=== PATIENT | male | born 1925 | race Caucasian/White ===

== ENCOUNTER 2016-04-05 07:04 | Day surgery (SDC) | payer BC ==
[2016-03-28 15:23] VITALS: BMI 23.0
--- NOTE | 2016-03-28 15:53 | PAT Medication Instructions ---
Service Date Mar 28, 2016. Current Home Medication List Alfuzosin Hcl (Uroxatral), 10 MG PO QPM Aspirin (Aspirin Ec), 81 MG PO HS Simvastatin (Zocor), 5 MG PO QPM Timolol Maleate (Ophth) (Timoptic), 1 DROP OPB QPM Medication Instructions For Your Scheduled Surgery - Take the following medications as scheduled the night before surgery: Alfuzosin Hcl (Uroxatral), 10 MG PO QPM Simvastatin (Zocor), 5 MG PO QPM Timolol Maleate (Ophth) (Timoptic), 1 DROP OPB QPM Aspirin (Aspirin Ec), 81 MG PO HS (okay to continue per surgeon) If you have any questions please call us at [phone] (Talia Beltrán PA-C) or [phone] or [phone]
[2016-03-28 16:18] LABS: BASO % 0.6 %; BASO ABS # 0.04 K/uL (0-0.2); COMPLETE YES; HEMATOCRIT 39.7 % (42-52); IG% 0.1 %; LYMPH % 31.9 %; LYMPH ABS # 2.13 K/uL (1.2-3.4); MEAN CORPUSCULAR HEMOGLOBIN 32.1 pg (25-34); MEAN CORPUSCULAR HGB CONC 33.8 g/dl (32-36); MEAN PLATELET VOLUME 9.6 fL (7.4-10.4); MONO % 10.2 %; NEUT % 47.2 %; PLATELET COUNT 137 K/uL (130-400); RED BLOOD COUNT 4.18 M/uL (4.7-6.1); WHITE BLOOD COUNT 6.67 K/uL (4.8-10.8)
[2016-03-28 16:34] LABS: INR 1.1 (0.9-1.1); PROTHROMBIN TIME (PATIENT) 11.4 SECONDS (9.0-12.0)
[2016-03-28 16:48] LABS: BUN/CREATININE RATIO 14.4 (10-20); CALCIUM 8.4 mg/dl (8.5-10.1); CREATININE 0.9 mg/dl (0.60-1.40); POTASSIUM 4.4 mmol/L (3.5-5.1)
[~2016-04-05] VITALS: Ht 170.2 cm; Wt 69.1 kg
[2016-04-05] VITALS (8 sets, daily range): BP systolic 136–162; BP diastolic 74–93; PULSE 51–67; TEMP 36.3–36.8; O2SAT 95–98; Ht 170.2 cm; Wt 69.1 kg
[~2016-04-05 07:04] MED LIST: ALFU10TA30 PO; ASPI81TA28 PO; CEFAZOLIN 2000 MG/60 ML D5W IV SCH; HEPARIN SOD 5000 UNIT/0.5 ML CARP SQ SCH; LACTATED RINGER'S 1000ML 1,000 ML IV SCH; SIMV5TAB2 PO; TIMO0.2528 OPB
[2016-04-05] MEDS ORDERED: FENTANYL CITRATE INJ 50 MCG/1 ML 2 ML VIAL ONE (07:37)
[2016-04-05] MEDS ORDERED: PROPOFOL IV EMULSION 10 MG/ML 20 ML VIAL IV ONE (07:37)
[2016-04-05] MEDS ORDERED: ONDANSETRON INJ 2 MG/ML 2 ML VIAL ONE (07:37)
[2016-04-05] MEDS ORDERED: LIDOCAINE HCL 2% 2 ML VIAL (20MG/ML) ONE (07:37)
[2016-04-05] MEDS ORDERED: DEXAMETHASONE SOD INJ 4 MG/ML VIAL ONE (07:37)
[2016-04-05] MEDS ORDERED: MIDAZOLAM HCL 1 MG/ML 2ML VIAL ONE (07:37)
[2016-04-05] MEDS ORDERED: LACTATED RINGER'S 1000ML 1,000 ML IV PRN (07:53)
[2016-04-05] MEDS ORDERED: FENTANYL CITRATE INJ 50 MCG/1 ML 2 ML VIAL IV PRN (08:00)
[2016-04-05] MEDS ORDERED: ONDANSETRON INJ 2 MG/ML 2 ML VIAL IV PRN ×2 (08:00→10:00)
--- NOTE | 2016-04-05 08:00 | History & Physical Bridge Note ---
H&P Re-Evaluation Bridge Note: I have examined the patient, reviewed the History & Physical and in the interval since the performance of the History & Physical I have noted the following changes of clinical significance: No changes noted
[2016-04-05] MEDS ORDERED: ARTIFICIAL TEARS OP OINT 3.5 GM TUBE ONE (08:32)
[2016-04-05] MEDS ORDERED: EpHEDrine SULFATE 50MG/5ML SYR ONE (08:35)
[2016-04-05] MEDS ORDERED: ROCURONIUM BROMIDE 10 MG/ML 5 ML VIAL ONE (08:49)
[2016-04-05] MEDS ORDERED: NEOSTIGMINE METHYLSULFATE 5 MG/5 ML SYR ONE (08:50)
[2016-04-05] MEDS ORDERED: GLYCOPYRROLATE INJ 0.2 MG/ML VIAL ONE (08:50)
[2016-04-05] MEDS ORDERED: BUPIVACAINE/EPINEPHRINE 0.5% MPF 1:200,000 30 ML VIAL INJ ONE (09:35)
[2016-04-05] MEDS ORDERED: SODIUM CHLORIDE 0.9% 1000ML 1,000 ML IV SCH (09:55)
--- NOTE | 2016-04-05 09:55 | [facility] Operative Report ---
Operative Report Operative Date Apr 05, 2016. 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 Any exceptions are noted below.
[2016-04-05] MEDS ORDERED: HYDR-5688 PO (09:58)
[2016-04-05] MEDS ORDERED: HYDROCODONE/ACETAMOPHEN 5/325MG TAB PO PRN ×2 (10:00)
[2016-04-05] MEDS ORDERED: MoRPHine SULFATE 2 MG/ML CARP IV PRN (10:00)
[2016-04-05] MEDS ORDERED: IBUPROFEN 600 MG TAB PO PRN (10:00)
--- NOTE | 2016-04-05 10:00 | Discharge Instructions ---
Discharge Instructions Admission Reason for Admission: Left Inguinal Hernia Discharge Discharge Diagnosis / Problem: left inguinal hernia Discharge Goals Goal(s): Decrease discomfort, Improve function Activity Recommendations Activity Limitations: as noted below Lifting Limitations: no more than 10 pounds Shower/Bathe: tomorrow . Instructions / Follow-Up Instructions / Follow-Up follow up with Dr. Lagunas in 1-2 weeks. Current Hospital Diet Patient's current hospital diet: Discharge Diet Recommended Diet: Regular Diet Procedures Procedures Performed: Open Left Inguinal Hernia Repair with Mesh Pending Studies Studies pending at discharge: no Medical Emergencies . Who to Call and When: Medical Emergencies: If at any time you feel your situation is an emergency, please call 911 immediately. . Non-Emergent Contact Non-Emergency issues call your: Primary Care Provider, Surgeon Call Non-Emergent contact if: temperature is above 101, your pain is not controlled, wound has increased drainage, wound has increased redness, wound has increased pain . "Provider Documentation" section prepared by Vadim Lagunas. VTE Core Measure Inpt VTE Proph given/why not?: Unfractionated heparin SQ, SCD's
--- NOTE | 2016-04-05 10:20 | OPERATIVE REPORT ---
DATE OF OPERATION: 04/05/2016 PREOPERATIVE DIAGNOSIS: Left inguinal hernia. POSTOPERATIVE DIAGNOSIS: Direct as well as an indirect left inguinal hernia. PROCEDURE: Open left inguinal hernia repair with mesh. SURGEON: Dr. Lagunas. ESTIMATED BLOOD LOSS: 30 mL. COMPLICATIONS: No immediate. ANESTHESIA: General. The patient tolerated the procedure well. OPERATIVE NOTE: After informed consent was obtained, the patient was taken to the operating suite, placed in supine position. After successful intubation a Constantino catheter was placed. The left groin was sterilely prepped and draped in usual fashion. An inguinal incision was made with a 10 blade scalpel and carried down through the soft tissue using electrocautery. We skeletonized the external oblique aponeurosis and then made a small incision in it as well. It was extended distally as well as several centimeters proximally with a Metzenbaum scissor. Once in the inguinal canal, we dissected the cord and cord structures away using primarily blunt dissection. I was able to grab it with a Isac clamp and elevate it off the pubic bone and then place a Narinder drain around it. We immediately noted a very large direct hernia defect. In fact the entire floor of the inguinal canal was essentially blown out. We were able to easily reduce this. Along the cord structures itself was also a very large necrotic thickened indirect hernia sac. We were able to tease this off the cord and cord structures using blunt dissection as well as small amounts of electrocautery. Eventually we got the sac the whole way down to its neck and then we were able to quite easily dunk this back into the abdominal cavity. After we did this, we thoroughly irrigated the inguinal canal. We used a piece of polypropylene mesh with a noland hole as an onlay. We secured it distally into Reynaldo's ligament and medially along the rectus musculature and laterally along the shelving portion of Poupart's ligament. We did all this with interrupted 0 Nurolon. We then wrapped the "arms" of the mesh around behind the cord and cord structures and also secured them to underlying muscle. At the end of procedure, both defects were repaired tension free. There was adequate hemostasis. We irrigated the wound a final time. We did inject around the edges of the mesh with Marcaine for postoperative analgesia. I then closed the external oblique aponeurosis with a running 2-0 Vicryl. Soft tissue was then irrigated and the wound was closed with 3-0 Vicryl followed by 4-0 Monocryl. Some additional Marcaine was injected around the wound for postoperative analgesia and skin glue was used as a dressing. The patient was awakened, extubated, and transferred to recovery in stable condition. I attest to the content of the Intraoperative Record and any orders documented therein. Any exceptio ns are noted below.
[2016-04-05] MEDS ORDERED: LABETALOL HCL IV 5 MG/ML 20ML ONE (10:51)
--- NOTE | 2016-04-05 11:02 | Anesthesiology Progress Note ---
Anesthesia Post Op Note Date & Time Apr 05, 2016 at 11:02 Vital Signs Pain Intensity: 0 Vital Signs Past 12 Hours Date Time Temp Pulse Resp B/P Pulse Ox O2 Delivery O2 Flow Rate FiO2 04/05/16 10:30 36.4 54 16 143/78 95 Room Air 04/05/16 10:25 133/90 04/05/16 10:23 36.4 04/05/16 10:19 55 16 04/05/16 10:19 55 16 97 04/05/16 10:18 58 16 137/86 95 04/05/16 10:18 53 16 04/05/16 10:17 134/80 04/05/16 10:13 58 14 94 04/05/16 10:13 58 14 04/05/16 10:12 58 15 04/05/16 10:12 59 15 94 04/05/16 10:09 112/85 04/05/16 10:07 60 19 100 04/05/16 10:07 60 19 04/05/16 10:06 62 16 04/05/16 10:06 60 16 99 04/05/16 10:05 155/89 04/05/16 10:01 65 12 96 04/05/16 10:01 65 12 04/05/16 09:59 145/99 04/05/16 09:56 73 15 99 04/05/16 09:56 73 15 04/05/16 09:54 133/76 04/05/16 09:51 75 24 04/05/16 09:51 76 24 100 04/05/16 09:50 138/69 04/05/16 09:46 83 14 97 04/05/16 09:46 82 14 04/05/16 09:46 36.2 96 16 162/108 97 Mask 10 04/05/16 07:34 36.3 55 18 162/93 98 Room Air Notes Mental Status: alert / awake / arousable, participated in evaluation Pt Amnestic to Procedure: Yes Nausea / Vomiting: adequately controlled Pain: adequately controlled Airway Patency, RR, SpO2: stable & adequate BP & HR: stable & adequate Hydration State: stable & adequate Anesthetic Complications: no major complications apparent Pt did well.
[2016-04-05] MEDS ORDERED: IBUPROFEN 600 MG TAB ONE (11:10)
[2016-04-05] MEDS ORDERED: NURSING VERBAL MED ORDER ONE (15:15)
[2016-04-05] MEDS ORDERED: TAMSULOSIN HCL 0.4 MG CAP PO ONE (15:30)
[2016-04-05] MEDS ORDERED: CEPH500C PO (20:47)
== END 2016-04-05 15:45 | disposition home or self-care (01) ==
LOC: C.ACU 07:04
PROVIDERS: ATTEND Surgery
DX: K40.90 Unilateral inguinal hernia, without obstruction or gangrene, not specified as recurrent (principal); N40.1 Benign prostatic hyperplasia with lower urinary tract symptoms; N13.8 Other obstructive and reflux uropathy; R35.1 Nocturia; Z79.82 Long term (current) use of aspirin; Z82.49 Family history of ischemic heart disease and other diseases of the circulatory system; R33.9 Retention of urine, unspecified

== ENCOUNTER 2016-04-05 19:47 | Emergency (ER) | payer BC ==
[~2016-04-05] VITALS: Ht 170.2 cm; Wt 72.6 kg
[~2016-04-05 19:47] MED LIST changes: -CEFAZOLIN 2000 MG/60 ML D5W IV SCH; -HEPARIN SOD 5000 UNIT/0.5 ML CARP SQ SCH; +HYDR-5688 PO; -LACTATED RINGER'S 1000ML 1,000 ML IV SCH
[2016-04-05 19:50] VITALS: TEMP 36.3; Ht 170.2 cm; Wt 72.6 kg
[2016-04-05] MEDS ORDERED: CEPHALEXIN MONOHYDRATE 250 MG CAP PO STA (20:31)
--- NOTE | 2016-04-05 20:32 | EMERGENCY ROOM VISIT NOTE ---
History Report prepared by Yu: Yaima Marei Under the Supervision of: Dr. Den Williamson M.D. First contact with patient: 19:55 Chief Complaint: UNABLE TO VOID Stated Complaint: HERNIA PROBLEM, S/P HERNIA SURGERY TODAY History of Present Illness The patient is a 89 year old male who presents to the Emergency Room with complaints of being unable to void for the past few hours. The patient had surgery this morning by Dr. Lagunas to repair a left inguinal hernia. He states that he has not been able to urinate since his surgery. He is experiencing suprapubic abdominal pain and pressure. He rates his pain as a 4/ 10 in severity. 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 A total of 10 systems reviewed and were otherwise negative. Past Medical & Surgical Medical Problems: (1) Cataract (2) Diverticulosis of colon (without mention of hemorrhage) Family History Non-pertinent due to advanced age. Social History Smoking Status: Never Smoker Marital Status: Housing Status: lives with significant other Occupation Status: retired Current/Historical Medications Scheduled Alfuzosin Hcl (Uroxatral), 10 MG PO QPM Aspirin (Aspirin Ec), 81 MG PO HS Cephalexin Monohydrate (Keflex), 1 CAP PO QID Simvastatin (Zocor), 5 MG PO QPM Timolol Maleate (Ophth) (Timoptic), 1 DROP OPB QPM Scheduled PRN Hydrocodone/Acetaminophen 5MG/325MG ([place] 5MG/325MG), 1 TABLET PO Q4 PRN for Pain Allergies Coded Allergies: No Known Allergies (Verified , 04/05/16) Physical Exam Vital Signs Date Time Temp Pulse Resp B/P Pulse Ox O2 Delivery O2 Flow Rate FiO2 04/05/16 21:35 75 18 152/98 96 04/05/16 19:50 36.3 93 20 161/103 95 Room Air Physical Exam GENERAL: Patient is a healthy-appearing well-nourished 89 year old male. HEAD: Normocephalic atraumatic EYES: Ocular movements intact pupils equal and react to light OROPHARYNX mucous membranes are moist no exudates present no erythema or edema present NECK: Supple no nuchal rigidity CHEST: Good equal expansion LUNGS: Clear and equal to auscultation CARDIAC: Normal S1 and S2 ABDOMEN: Surgical site appears to be healing well, moderate amount of bruising around the site, tender in the suprapubic area. BACK: No CVA tenderness EXTREMITIES: No pain upon palpation normal muscle strength in all groups no clubbing cyanosis or edema NEURO: Patient is following commands is answering questions appropriately. Alert and oriented x3 Cranial Nerves 2-12 grossly intact Medical Decision & Procedures Laboratory Results Test 04/05/16 20:20 Urine Color YELLOW Urine Appearance CLEAR (CLEAR) Urine pH 7.0 (4.5-7.5) Urine Specific [place] 1.011 (1.000-1.030) Urine Protein NEG (NEG) Urine Glucose (UA) NEG (NEG) Urine Ketones TRACE (NEG) Urine Occult Blood 2+ (NEG) Urine Nitrite NEG (NEG) Urine Bilirubin NEG (NEG) Urine Urobilinogen NEG (NEG) Urine Leukocyte Esterase NEG (NEG) Urine WBC (Auto) 1-5 /hpf (0-5) Urine RBC (Auto) 10-30 /hpf (0-4) Urine Hyaline Casts (Auto) 1-5 /lpf (0-5) Urine Epithelial Cells (Auto) 5-10 /lpf (0-5) Urine Bacteria (Auto) NEG (NEG) Labs reviewed by ED physician. Medications Administered Medications (Trade) Dose Ordered Sig/Ned Route Start Time Stop Time Status Last Admin Dose Admin Cephalexin Monohydrate (Keflex Cap) 500 mg NOW STAT PO 04/05/16 20:31 04/05/16 20:33 DC 04/05/16 21:09 500 MG ED Course 1954: Past medical records reviewed. The patient was evaluated in room A11A. A complete history and physical examination was performed. 2030: Keflex cap 500 mg PO 2038: I reassessed the patient at this time. He is feeling better and resting comfortably. I discussed the results and treatment plan with the patient. I answered all pertaining questions that he had. He expressed understanding and verbalized agreement. The patient will be discharged home. Medical Decision This is an 89-year-old male who presents emergency department complaining of inability to urinate after having surgery done today. A Constantino was placed which did result the patient's symptoms immediately improving. I will place the patient on Keflex pending a urinalysis results. I encouraged patient follow-up with his urologist. The patient is already on a medication for prostate hypertrophy. Patient and are in agreement with the treatment plan. Impression Primary Impression: Urinary retention Scribe Attestation The scribe's documentation has been prepared under my direction and personally reviewed by me in its entirety. I confirm that the note above accurately reflects all work, treatment, procedures, and medical decision making performed by me. Departure Information Dispostion Home / Self-Care Prescriptions Cephalexin Monohydrate (Keflex) 500 Mg Cap 1 CAP PO QID for 10 Days, #40 CAP Prov: Den Williamson MD 04/05/16 Referrals Douglas Henson M.D. (PCP) Davidson Moya MD Forms HOME CARE DOCUMENTATION FORM, IMPORTANT VISIT INFORMATION, WORK / SCHOOL INSTRUCTIONS Patient Instructions A Signature Page, ED Retention Urinary Male, My [facility] Additional Instructions Follow up with DR Moya's office Culture results are usually available in approx 48 hours You have been examined and treated today on an emergency basis only. This is not a substitute for, or an effort to provide, complete comprehensive medical care. It is impossible to recognize and treat all injuries or illnesses in a single emergency department visit. It is therefore important that you follow up closely with Dr Henson. Call as soon as possible for an appointment. Thank you for your time and consideration. I look forward to speaking with you again soon. Please don't hesitate to call us if you have any questions.
[2016-04-05] MEDS ORDERED: CEPH500C PO (20:47)
[2016-04-05 20:49] LABS: URINE APPEARANCE CLEAR (CLEAR); URINE BILIRUBIN NEG (NEG); URINE COLOR YELLOW; URINE NITRITE NEG (NEG); URINE SPECIFIC GRAVITY 1.011 (1.000-1.030); UROBILINOGEN NEG (NEG); ZZURINE CULT IF INDIC CATH NO
[2016-04-05 20:55] LABS: MANUAL MICROSCOPIC REQUIRED? NO; REVIEW REQ? NO
[2016-04-05 21:35] VITALS: BP 152/98; PULSE 75; O2SAT 96
== END 2016-04-05 21:36 | disposition home or self-care (01) ==
LOC: C.EDB 19:48 → C.EDA 21:36
DX: R33.9 Retention of urine, unspecified (principal); N40.1 Benign prostatic hyperplasia with lower urinary tract symptoms